=== PATIENT | female | born 1980 | race Caucasian/White ===

== ENCOUNTER 2019-06-05 12:08 | Outpatient (CLI) | payer OTHER, SELFPAY ==
--- NOTE | 2019-06-05 12:15 | US_ITS ---
WS: [id number] RIGHT UPPER QUADRANT ULTRASOUND HISTORY: EPIGASTRIC PAIN COMPARISON: None available. Liver: 15.8 cm in length. Normal size and echogenicity with no intrahepatic dilatation. No mass. Gallbladder: Gallbladder is slightly over distended with an transverse diameter of greater than 4 cm. No wall thickening or pericholecystic fluid. CBD: 0.6 cm Pancreas: Normal size and echogenicity. Right kidney: 10.0 cm in length. Normal echogenicity with no mass or hydronephrosis. Aorta and IVC: Unremarkable. No ascites. Sliver of pleural fluid. US/US gall bladder 24000 IMPRESSION: 1. Gallbladder slightly over distended with no stones identified or pericholec ystic fluid. 2. Common bile duct is top normal size with no stone. Consider further evaluat ion by MRCP. No pancreatic head mass is identified. 3. Small RIGHT pleural effusion.
--- NOTE | 2019-06-05 12:17 | XR_ITS ---
WS: [id number] PROCEDURE: XR chest 2V* [id number] CLINICAL INFORMATION: SOB, TACHYCARDIA COMPARISON: FINDINGS: Heart: Normal cardiac silhouette. Lungs: Small right pleural effusion with subsegmental atelectasis right lung base. Volume loss right lower lobe. Left lung is well aerated. Bones: Normal visualized bony structures. XR/XR chest 2V* [id number] IMPRESSION: Small right pleural effusion with subsegmental atelectasis right lung base. Rec ommend correlation for pneumonia.
[2019-06-05 13:08] LABS: Basophils # 0.1 10^3/uL (0.0-0.1); Basophils % 0.7 %; Eosinophils % 8.4 %; Hematocrit 38.6 % (37.0-47.0); Hemoglobin 11.9 g/dL (11.5-15.3); Lymphocytes # 1.5 10^3/uL (0.8-4.8); Lymphocytes % 12.5 %; Mean Corpuscular HGB Conc 30.8 g/dL (30.0-36.0); Mean Corpuscular Hemoglobin 26.9 pg (28.0-34.0); Mean Corpuscular Volume 87.3 fL (81-99); Mean Platelet Volume 10.4 fL (7.4-10.4); Monocytes % 8.3 %; Neutrophils # 8.6 10^3/uL (1.8-7.7); Neutrophils % 69.9 %; Nucleated Red Blood Cells % 0 %; Platelet Count 316 10^3/cmm (130-400); Red Blood Count 4.42 10^6/uL (4.1-5.3); Red Cell Distribution Width 14.3 % (12.1-15.1); White Blood Count 12.3 10^3/uL (4.0-10.0)
[2019-06-05 13:26] LABS: H. Pylori IgG Antibody Negative (Negative)
[2019-06-05 13:29] LABS: Alanine Aminotransferase 11 U/L (0-33); Albumin Level 4.1 g/dL (3.5-5.2); Alkaline Phosphatase 87 IU/L (35-105); Anion Gap 14.5 (5-19); Aspartate Amino Transferase 15 U/L (0-32); Blood Urea Nitrogen 10 mg/dL (6-20); Calcium 9.6 mg/dL (8.5-10.5); Carbon Dioxide 27 mmol/L (22-29); Chloride 101 mmol/L (98-107); Globulin 3.6 g/dL (1.3-4.6); Glomerular Filtration Rate 62.7 mL/min (90-130); Glucose 112 mg/dL (65-115); Immunoglobulin IGA 215 mg/dL (70-400); Osmolality Calculated 285 mOsm/kg (285-295); Potassium 3.5 mmol/L (3.5-5.1); Sodium 139 mmol/L (136-145); Total Bilirubin 0.3 mg/dL (0.15-1.2); Total Protein 7.7 g/dL (6.6-8.7)
== END 2019-06-05 12:09 | disposition home or self-care (01) ==
LOC: RAD 12:10 → RADWPI 13:27
PROVIDERS: Visit Provider Nurse Practitioner Family
DX: R06.00 Dyspnea, unspecified (principal); R10.13 Epigastric pain; R00.0 Tachycardia, unspecified; R06.02 Shortness of breath; J90 Pleural effusion, not elsewhere classified; J98.11 Atelectasis
CPT/HCPCS: 36415; 71046; 76705; 80053; 82784; 85025; 86677

== ENCOUNTER 2019-07-31 14:43 | Outpatient (CLI) | payer OTHER, SELFPAY | END 2019-07-31 14:44 | disposition home or self-care (01) | LOC: WOUND 14:47 | PROVIDERS: Visit Provider Nurse Practitioner Family | DX: I96 Gangrene, not elsewhere classified (principal); L97.522 Non-pressure chronic ulcer of other part of left foot with fat layer exposed | CPT/HCPCS: 11042; 87070; 87176; 87205; G0463 ==

== ENCOUNTER 2019-08-07 14:43 | Outpatient (CLI) | payer OTHER, SELFPAY | END 2019-08-07 14:44 | disposition home or self-care (01) | LOC: WOUND 14:47 | PROVIDERS: Visit Provider Nurse Practitioner Family | DX: I96 Gangrene, not elsewhere classified (principal); L97.422 Non-pressure chronic ulcer of left heel and midfoot with fat layer exposed | CPT/HCPCS: 11042 ==

== ENCOUNTER 2019-08-14 15:19 | Outpatient (CLI) | payer OTHER, SELFPAY | END 2019-08-14 15:20 | disposition home or self-care (01) | LOC: WOUND 15:19 | PROVIDERS: Visit Provider Nurse Practitioner Family | DX: I96 Gangrene, not elsewhere classified (principal); L98.492 Non-pressure chronic ulcer of skin of other sites with fat layer exposed | CPT/HCPCS: 99212 ==

== ENCOUNTER 2019-08-28 09:38 | Outpatient (CLI) | payer OTHER, SELFPAY | END 2019-08-28 09:39 | disposition home or self-care (01) | LOC: WOUND 09:42 | PROVIDERS: Visit Provider Emergency Medicine | DX: L97.422 Non-pressure chronic ulcer of left heel and midfoot with fat layer exposed (principal) | CPT/HCPCS: 11042 ==

== ENCOUNTER → 2020-07-02 13:58 | Outpatient (BNVA) | payer OTHER, SELFPAY | PROVIDERS: Visit Provider Specialist | DX: G40.309 Generalized idiopathic epilepsy and epileptic syndromes, not intractable, without status epilepticus (principal); Z87.891 Personal history of nicotine dependence | CPT/HCPCS: 99213 ==

== ENCOUNTER → 2020-09-04 16:50 | Outpatient (BNVA) | payer OTHER, SELFPAY | PROVIDERS: Visit Provider Obstetrics & Gynecology | DX: Z12.4 Encounter for screening for malignant neoplasm of cervix (principal) | CPT/HCPCS: 81025; 88175 ==

== ENCOUNTER → 2023-03-02 13:44 | Outpatient (BNVA) | payer OTHER, MEDICAID, SELFPAY | PROVIDERS: PCP Family Medicine; Visit Provider Orthopaedic Surgery | DX: M54.42 Lumbago with sciatica, left side (principal); G89.29 Other chronic pain | CPT/HCPCS: 72120 ==

== ENCOUNTER 2023-04-09 11:43 | Outpatient (CLI) | payer OTHER, MEDICAID, SELFPAY ==
--- NOTE | 2023-04-09 11:45 | MR_ITS ---
WS: [id number] MRI LUMBAR SPINE NONCONTRAST HISTORY: lumbar pain COMPARISON: None available. TECHNIQUE: Sagittal and axial multisequence imaging is submitted. Mild straightening and slight reversal the normal lumbar lordosis. Very mild disc space narrowing and desiccation. No fractures or marrow edema. Conus terminates normally at L1-2 disc level. L1-L2: Disc space is narrowed. LEFT paracentral disc or osteophyte or calcified disc protrusion conta cts the LEFT lateral thecal sac. There is also narrowing of the LEFT foramen. Otherwise mild disc bul ging. There is mild central and LEFT subarticular recess stenosis. L2-L3: Mild diffuse annular disc bulging with a central disc protrusion. Moderate ligamentum flavum a nd facet arthritis. Mild central stenosis with encroachment upon the subarticular recesses and the tr aversing L3 nerve roots. Mild foraminal narrowing. L3-L4: Mild annular disc bulging with ligamentum flavum and facet arthritis. There is mild encroachme nt upon the ventral thecal sac. Mild central, bilateral subarticular recess and foraminal stenosis. S mall amount of fluid in the LEFT facet joint. L4-L5: Mild annular disc bulging. There is significant encroachment upon the ventral thecal sac and s ubarticular recesses. Disc contacts the traversing L5 nerve roots. There is an additional LEFT forami nal disc protrusion. Moderate central, bilateral subarticular recess and LEFT foraminal stenosis. Dis c contacts the L5 nerve roots and the LEFT L4 nerve root. L5-S1: Diffuse annular disc bulging with encroachment and contact on the ventral thecal sac and the S 1 nerve roots. Moderate central with bilateral subarticular recess stenosis. Disc extends into the fo ramina also contacting the L5 nerve roots, LEFT greater than RIGHT. IMPRESSION: 1. L1-2: LEFT paracentral disc/osteophyte or calcified disc protrusion contacts the LEFT lateral the sheldon sac and narrowing the proximal LEFT foramen. Mild central, LEFT subarticular recess and LEFT fora katie stenosis. 2. L2-3 and L3-4: Mild central, subarticular recess and foraminal stenosis. 3. L4-5: Moderate central, bilateral subarticular recess and LEFT foraminal stenosis. There is disc contacting the L5 nerve roots in the subarticular recesses and also the LEFT L4 nerve root. 4. L5-S1: Moderate central with bilateral subarticular recess and foraminal stenosis, LEFT greater t slater RIGHT. Disc contacts and slightly displaces the S1 nerve roots and to a lesser extent the L5 nerv e roots. 5. The most significant stenosis and nerve root encroachment involves the LEFT L4-5 and L5-S1 forami na and the central canal.
== END 2023-04-09 11:44 | disposition home or self-care (01) ==
LOC: RAD 11:43
PROVIDERS: PCP Family Medicine; Visit Provider Orthopaedic Surgery
DX: M48.061 Spinal stenosis, lumbar region without neurogenic claudication (principal); M51.26 Other intervertebral disc displacement, lumbar region
CPT/HCPCS: 72148